=== PATIENT | male | born 1985 | race Caucasian/White ===

== ENCOUNTER 2017-09-01 06:04 | Emergency (ER) | payer MEDICAID ==
[2017-09-01 06:08] VITALS: BP 144/95
== END 2017-09-01 07:47 | disposition home or self-care (01) ==
LOC: ED 06:04
DX: J06.9 Acute upper respiratory infection, unspecified (principal); J45.909 Unspecified asthma, uncomplicated
CPT/HCPCS: Q0092

== ENCOUNTER 2018-10-19 13:41 | Emergency (ER) | payer MEDICAID ==
[~2018-10-19] VITALS: Ht 170.2 cm; Wt 80.7 kg
[2018-10-19 13:47] VITALS: BP 142/89; Ht 170.2 cm; Wt 80.7 kg
== END 2018-10-19 14:15 | disposition home or self-care (01) ==
LOC: ED 13:41
DX: H60.92 Unspecified otitis externa, left ear (principal)

== ENCOUNTER 2018-12-14 07:43 | Emergency (ER) | payer MEDICAID | END 2018-12-14 10:40 | disposition home or self-care (01) | LOC: ED 07:43 ==

== ENCOUNTER 2019-09-27 12:42 | Emergency (ER) | payer MEDICAID ==
[~2019-09-27] VITALS: Ht 172.7 cm; Wt 81.2 kg
[2019-09-27 12:46] VITALS: Ht 172.7 cm; Wt 81.2 kg
[2019-09-27 15:15] VITALS: BP 136/87
== END 2019-09-27 15:15 | disposition home or self-care (01) ==
LOC: ED 12:42
DX: M54.6 Pain in thoracic spine (principal); R42 Dizziness and giddiness
CPT/HCPCS: 87804; J1885